=== PATIENT | male | born 1995 | race Caucasian/White ===

== ENCOUNTER 2024-06-13 17:59 | Emergency (ER) | payer OTHER ==
[~2024-06-13] VITALS: Ht 162.6 cm; Wt 81.6 kg
[2024-06-13 18:04] VITALS: BP_SYST 129; PULSE 89; RESP 22; TEMP 98.3; O2SAT 98
[2024-06-13] MEDS: EPINEPHrine HCL 1 MG/ML VIAL IM ONE (18:17)
[2024-06-13] MEDS ORDERED: EPINEPHRINE HCL/PF 1 MG/ML AMP ONE (18:19)
[2024-06-13] MEDS: DEXAMETHASONE SOD PHOSPHATE 10 MG/ML VIAL IVP ONE (18:28)
[2024-06-13] MEDS: DIPHENHYDRAMINE INJ 50 MG/ML VIAL IVP ONE (18:28)
[2024-06-13] MEDS: ONDANSETRON HCL 4 MG/2 ML VIAL IVP ONE (18:28)
[2024-06-13] MEDS: NACL 0.9% 1,000 ML IV ONE (18:28)
[2024-06-13] MEDS ORDERED: DIPH25CA83 PO (19:39)
[2024-06-13] MEDS ORDERED: PRED20TA PO (19:39)
[2024-06-13] MEDS ORDERED: EPIN0.3P3 IM (19:39)
[2024-06-13 22:18] VITALS: BP_SYST 124; PULSE 95; RESP 20; TEMP 98.6; O2SAT 100
== END 2024-06-13 19:50 | disposition home or self-care (01) ==
LOC: SED 17:59
DX: R13.10 Dysphagia, unspecified (principal); T78.09XA Anaphylactic reaction due to other food products, initial encounter; X58.XXXA Exposure to other specified factors, initial encounter
CPT/HCPCS: 99284; 96374; 96375; 96361; 96372; J1100; J1200; J0171; J2405; J7030